=== PATIENT | female | born 1970 | race Caucasian/White ===

== ENCOUNTER → 2023-10-30 08:27 | Outpatient (REF) | payer BC, SELFPAY | LOC: DHCBS MAIN 08:27 | PROVIDERS: ATTENDING PHYSICIAN Nuclear Medicine Nuclear Cardiology; FAMILY PHYSICIAN Internal Medicine | DX: R07.9 Chest pain, unspecified (principal); R55 Syncope and collapse; I35.1 Nonrheumatic aortic (valve) insufficiency | CPT/HCPCS: 93306 ==

== ENCOUNTER → 2024-02-24 15:48 | Outpatient (REF) | payer BC, SELFPAY | LOC: RAD 15:48 | PROVIDERS: ATTENDING PHYSICIAN Otolaryngology; FAMILY PHYSICIAN Internal Medicine | DX: R51.9 Headache, unspecified (principal) | CPT/HCPCS: 70486 ==

== ENCOUNTER → 2024-06-03 07:35 | Outpatient (REF) | payer BC, SELFPAY | LOC: WDC 07:35 | PROVIDERS: ATTENDING PHYSICIAN Obstetrics & Gynecology; FAMILY PHYSICIAN Internal Medicine | DX: Z00.00 Encounter for general adult medical examination without abnormal findings (principal); Z13.820 Encounter for screening for osteoporosis; Z12.31 Encounter for screening mammogram for malignant neoplasm of breast | CPT/HCPCS: 77063; 77067; 77080 ==

== ENCOUNTER 2025-04-29 06:24 | Day surgery (SDC) | payer BC, SELFPAY | END 2025-04-29 14:03 | disposition home or self-care (01) | LOC: GI 06:24 | PROVIDERS: ATTENDING PHYSICIAN Internal Medicine Gastroenterology | DX: R12 Heartburn (principal); K31.7 Polyp of stomach and duodenum; K31.89 Other diseases of stomach and duodenum; K29.50 Unspecified chronic gastritis without bleeding; Z13.810 Encounter for screening for upper gastrointestinal disorder | CPT/HCPCS: 43239; 88305; 88342 ==

== ENCOUNTER → 2025-06-04 08:32 | Outpatient (REF) | payer BC, SELFPAY | LOC: WDC 08:32 | PROVIDERS: ATTENDING PHYSICIAN Internal Medicine | DX: Z12.31 Encounter for screening mammogram for malignant neoplasm of breast (principal) | CPT/HCPCS: 77063; 77067 ==